=== PATIENT | female | born 1975 | race Hispanic/Latino ===

== ENCOUNTER → 2020-07-11 15:52 | Outpatient (CLI) | payer OTHER, SELFPAY ==
[2020-07-11] MEDS: COVID-19 VACC, Ad26(JANSSEN)/PF 0.5 ML IM (16:03)
== END ==
PROVIDERS: Visit Provider Internal Medicine
DX: Z23 Encounter for immunization (principal)
CPT/HCPCS: 0031A; 91303

== ENCOUNTER → 2023-06-28 17:18 | Outpatient (CLI) | payer OTHER, SELFPAY | PROVIDERS: Visit Provider Physician Assistant | DX: N94.9 Unspecified condition associated with female genital organs and menstrual cycle (principal) | CPT/HCPCS: 87210 ==

== ENCOUNTER → 2023-07-26 09:55 | Outpatient (CLI) | payer OTHER, SELFPAY ==
[2023-07-26 11:46] LABS: Prolactin 6.7 ng/mL (3.0-18.6)
[2023-07-26 11:50] LABS: TSH w/ Reflex to FT4 2.32 uIU/mL (0.47-4.68)
== END ==
PROVIDERS: Referring Provider Physician Assistant; Visit Provider Physician Assistant
DX: N64.52 Nipple discharge (principal)
CPT/HCPCS: 36415; 84146; 84443

== ENCOUNTER → 2023-08-11 10:56 | Outpatient (CLI) | payer OTHER, SELFPAY ==
[2023-08-11 12:31] LABS: Cholesterol 227 mg/dL (140-199); HDL Cholesterol 24 mg/dL (40-60)
[2023-08-11 13:11] LABS: Triglycerides 1320 mg/dL (35-150)
[2023-08-11 17:28] LABS: Hemoglobin A1C% w Est Avg Glu 11.3 % (4.0-6.0)
== END ==
PROVIDERS: PCP Family Medicine; Referring Provider Family Medicine; Visit Provider Family Medicine
DX: Z13.1 Encounter for screening for diabetes mellitus (principal); Z13.220 Encounter for screening for lipoid disorders
CPT/HCPCS: 36415; 80061; 83036

== ENCOUNTER → 2023-08-12 08:42 | Outpatient (CLI) | payer OTHER, SELFPAY ==
--- NOTE | 2023-08-12 08:42 | DI.US.S_ITS ---
LIMITED ULTRASOUND OF LEFT BREAST: 08/12/2023 CLINICAL: Patient returns today to evaluate a focal asymmetry in the left breast. Comparison is made to exams dated: 08/12/2023 mammogram - [facility], 03/22/2022 ultrasound, and 03/22/2022 mammogram - Outside facility. Color flow and real-time ultrasound of the left breast 2 o'clock, and retroareolar regions were performed. Abbasi scale images of the real-time examination were reviewed. There is a benign 0.9 cm x 0.7 cm x 0.5 cm oval simple cyst in the left breast at 1 o'clock middle depth 10 cm from the nipple. This oval simple cyst is anechoic. This correlates as palpated. Color flow imaging demonstrates that there is no vascularity present. There also is a benign 0.5 cm oval simple cyst in the left breast central to the nipple anterior depth. This oval simple cyst is anechoic. Color flow imaging demonstrates that there is no vascularity present. No dilated retroareolar ducts. No retroareolar mass. IMPRESSION: BENIGN There is no sonographic evidence of malignancy. The 0.9 cm simple cyst in the left breast at 1 o'clock middle depth is benign. The 0.5 cm simple cyst in the left breast central to the nipple anterior depth is benign. A 1 year screening mammogram is recommended. Exam findings were conveyed to the patient. Patient describes bilateral clear nipple discharge. Patient is advised to monitor for significant change. Clinical follow-up as needed. If symptoms worsen, breast MRI could be considered for further evaluation. This exam was interpreted at Station ID: [id number]. Electronically Signed By: Rowdy Escobedo M.D. [facility]08/12/2023 10:23:38 letter sent: Normal Exam Ultrasound BI-RADS: 2 Benign
--- NOTE | 2023-08-12 08:42 | DI.MG.S_ITS ---
BILATERAL DIGITAL DIAGNOSTIC MAMMOGRAM 3D/2D: 08/12/2023 CLINICAL: Palpable left breast lump Occasional pain in both breasts. Comparison is made to exams dated: 03/22/2022 mammogram and 03/22/2022 ultrasound - Outside facility. Both breasts are extremely dense, which lowers the sensitivity of mammography (category d />75% glandular tissue). No significant masses, calcifications, or other findings are seen in either breast. IMPRESSION: INCOMPLETE: NEEDS ADDITIONAL IMAGING EVALUATION No mammographic evidence of malignancy. A targeted ultrasound is recommended and will immediately follow. Based on the Tyrer Cuzick model (a risk assessment model) the patient's lifetime risk is 15.1% and her 10 year risk is 3.4%. According to the ACR, ACS, and NCCN guidelines, an annual breast MRI exam along with mammogram is recommended if the patient's lifetime risk is 20% or greater. This exam was interpreted at Station ID: [id number]. NOTE: For mammograms, a report in lay terms will be sent to the patient. Approximately 15% of breast malignancies will not be visualized mammographically. In the management of a palpable breast mass, a negative mammogram must not discourage biopsy of a clinically suspicious lesion. Electronically Signed By: Rowdy Escobedo M.D. slc/:08/12/2023 09:29:41 ACR BI-RADS Category 0: Incomplete 3340F
== END ==
PROVIDERS: PCP Family Medicine; Referring Provider Family Medicine; Visit Provider Family Medicine
DX: R92.2 Inconclusive mammogram (principal); N60.02 Solitary cyst of left breast; R92.323 Mammographic fibroglandular density, bilateral breasts
CPT/HCPCS: 76642; 77066; G0279

== ENCOUNTER → 2023-10-29 07:57 | Outpatient (CLI) | payer OTHER, SELFPAY ==
[2023-10-29 08:45] LABS: Influenza A - CEPHEID Flu A NEGATIVE (NEGATIVE); Influenza B - CEPHEID Flu B NEGATIVE (NEGATIVE); Respiratory Syncytial Virus Negative (Negative)
[2023-10-29 08:58] LABS: COVID-19 CEPHEID 4-PLEX PCR POSITIVE (Negative)
== END ==
PROVIDERS: PCP Family Medicine; Visit Provider Student in an Organized Health Care Education/Training Program
DX: R50.9 Fever, unspecified (principal); J02.9 Acute pharyngitis, unspecified
CPT/HCPCS: 0241U; 87070; 87077; 87147

== ENCOUNTER → 2024-01-18 18:22 | Outpatient (ROUT) | payer OTHER, SELFPAY | PROVIDERS: PCP Family Medicine; Visit Provider Dermatology | DX: L72.0 Epidermal cyst (principal) | CPT/HCPCS: 87070; 87075; 87077; 87147; 87186; 87205 ==

== ENCOUNTER → 2024-07-14 18:57 | Outpatient (CLI) | payer OTHER, SELFPAY ==
[2024-07-14 20:07] LABS: Influenza A - CEPHEID Flu A NEGATIVE (NEGATIVE); Influenza B - CEPHEID Flu B POSITIVE (NEGATIVE); Respiratory Syncytial Virus Negative (Negative)
[2024-07-14 20:08] LABS: COVID-19 CEPHEID 4-PLEX PCR Negative (Negative)
== END ==
PROVIDERS: PCP Family Medicine; Visit Provider Nurse Practitioner Family
DX: R05.1 Acute cough (principal); J02.9 Acute pharyngitis, unspecified
CPT/HCPCS: 0241U; 87070; 87077; 87147; 87186

== ENCOUNTER → 2024-07-21 08:40 | Outpatient (CLI) | payer OTHER, SELFPAY ==
--- NOTE | 2024-07-21 08:41 | DI.RAD.S_ITS ---
PROCEDURE: XR CHEST 2V INDICATIONS: Cough, dyspnea TECHNIQUE: 2 views of the chest were acquired. COMPARISON: None. FINDINGS AND IMPRESSION: No dense airspace disease or pleural effusions. Normal heart size. Unremarkable osseous structures. Dictated by: Moe Garcia M.D. on 07/21/2024 at 9:01 Approved by: Moe Garcia M.D. on 07/21/2024 at 9:02
== END ==
PROVIDERS: PCP Family Medicine; Referring Provider Physician Assistant Surgical; Visit Provider Physician Assistant Surgical
DX: R05.9 Cough, unspecified (principal)
CPT/HCPCS: 71046

== ENCOUNTER → 2024-09-17 15:51 | Outpatient (CLI) | payer OTHER, SELFPAY | LOC: LAB 15:51 | PROVIDERS: PCP Family Medicine; Visit Provider Family Medicine | DX: Z11.3 Encounter for screening for infections with a predominantly sexual mode of transmission (principal) | CPT/HCPCS: 87491; 87563; 87591 ==

== ENCOUNTER → 2024-10-24 17:16 | Outpatient (CLI) | payer OTHER, SELFPAY ==
[2024-10-25 12:19] LABS: Strep Grp B PCR POS for Grp B Strep
[2024-10-28 00:36] LABS: Chlamydia trachomatis Negative (Negative); Mycoplasma genitalium Negative (Negative); Neisseria gonorrhoeae Negative (Negative)
== END ==
PROVIDERS: PCP Family Medicine; Visit Provider Family Medicine
DX: Z11.3 Encounter for screening for infections with a predominantly sexual mode of transmission (principal); Z11.8 Encounter for screening for other infectious and parasitic diseases; N89.8 Other specified noninflammatory disorders of vagina; R10.2 Pelvic and perineal pain
CPT/HCPCS: 87210; 87491; 87563; 87591; 87653; 87801

== ENCOUNTER → 2024-12-01 09:01 | Outpatient (CLI) | payer OTHER, SELFPAY ==
[2024-12-01 11:56] LABS: Cholesterol 218 mg/dL (140-199); HDL Cholesterol 41 mg/dL (40-60); Triglycerides 304 mg/dL (35-150)
[2024-12-01 11:57] LABS: Hemoglobin A1C% w Est Avg Glu 12.5 % (4.0-6.0)
[2024-12-01 15:47] LABS: HIV 1 & 2 Ab/Ag 4th Gen Combo NEGATIVE (NEGATIVE); Hep C Virus Ab w/Reflex Quant NEGATIVE s/c (NEGATIVE)
== END ==
PROVIDERS: PCP Family Medicine; Referring Provider Family Medicine; Visit Provider Family Medicine
DX: E11.9 Type 2 diabetes mellitus without complications (principal); Z72.51 High risk heterosexual behavior; Z11.59 Encounter for screening for other viral diseases; E78.5 Hyperlipidemia, unspecified
CPT/HCPCS: 36415; 80061; 83036; 86803; 87389

== ENCOUNTER → 2025-03-05 15:50 | Outpatient (CLI) | payer OTHER, SELFPAY ==
--- NOTE | 2025-03-05 15:51 | DI.ECHO.S_ITS ---
[facility] : : [id number] : [place] : : [id number] : : Phone: [phone] Echocardiogram Report + + :Name: VINCENT BANKS Study Date: 03/05/2025 Height: 61 in : :[facility] ReadingLocation: Weight: 178 lb : : Gender: Female BSA: 1.8 m2 : :: 1975 Age: 49 yrs BP: 156/81 mmHg: :Reason For Study: Murmur : :Ordering Physician: PRINCE, : :ROSA Ashford Performed By: Olaf Cooper : :Referring: ROSA MORRISON : + + Interpretation Summary . The ejection fraction is estimated to be 70-75%. The left ventricle is hyperdynamic. Wall thickness is mildly increased. No definite signs of HOCM. If clinically indicated a cardiac MRI may be requested There is trace tricuspid regurgitation. The right ventricular systolic pressure is estimated to be at least 20 mmHg based on an estimated right atrial pressure of 3 mm Hg. Procedure: A two-dimensional transthoracic echocardiogram with color flow and Doppler was performed. The study quality was technically adequate. There is no prior echocardiogram noted for this patient. The patient was in normal sinus rhythm during the exam. Left Ventricle: The left ventricle is normal in size. Left ventricular wall thickness is mildly increased. The left ventricle is hyperdynamic. The ejection fraction is estimated to be 70-75%. There are no focal wall motion abnormalities. Grade I diastolic dysfunction with normal left atrial pressure. Right Ventricle: The right ventricle is normal in size and function. Atria: The left atrial size is normal. Right atrial size is normal. There is no Doppler evidence for an interatrial shunt. Mitral Valve: The mitral valve leaflets appear to open well. There is no mitral valve stenosis. There is trace mitral regurgitation. Aortic Valve: The aortic valve is trileaflet. The aortic valve opens well. There is no aortic valve stenosis. No aortic regurgitation is present. Tricuspid Valve: The tricuspid valve is not well visualized, but is grossly normal. There is trace tricuspid regurgitation. The right ventricular systolic pressure is estimated to be at least 20 mmHg based on an estimated right atrial pressure of 3 mm Hg. Pulmonic Valve: The pulmonic valve is not well seen, but is grossly normal. There is a trace or physiologic amount of pulmonic regurgitation. Great Vessels: The aortic root is normal size. The ascending aorta is normal in size. The aortic arch could not be visualized. The pulmonary artery is not well visualized, but is probably normal size. The IVC is of normal diameter and collapses greater than 50% with a sniff. This suggests a low right atrial pressure of 3 mm Hg. Pericardium/ Pleura There is no pericardial effusion. MMode/2D Measurements & Calculations LVIDd: 4.2 cm LVOT diam: 2.0 cm LVIDs: 2.3 cm Ao root diam: 2.9 cm FS: 44.7 % asc Aorta Diam: 2.8 cm IVSd: 1.2 cm LVPWd: 1.2 cm LV grace. diameter/BSA (cm/m^2): 2.3 LV sys. diameter/BSA (cm/m^2): 1.3 LA A2 area: 14.2 cm2 RA long axis: 4.5 cm LA A4 area: 11.3 cm2 RA area: 10.0 cm2 LA length (vol): 4.5 cm RA vol: 19.0 ml LA vol: 30.1 ml RA : 10.5 ml/m2 LA vol index: 16.7 ml/m2 IVC diam: 1.3 cm RVD1 (basal): 2.2 cm RVD2 (mid): 2.0 cm TAPSE: 2.3 cm Doppler Measurements & Calculations Ao V2 max: 191.6 cm/sec LVOT Max Sabino: 158.9 cm/sec Ao V2 mean: 126.1 cm/sec LV V1 max P.1 mmHg Ao max P.7 mmHg LV V1 VTI: 25.2 cm Ao mean P.7 mmHg JENISE(I,D): 3.0 cm2 Ao V2 VTI: 27.7 cm JENISE(V,D): 2.7 cm2 sev ratio: 0.91 JENISE indexed to BSA (cm^2/m^2): 1.6 MV E max sabino: 77.0 cm/sec TR max sabino: 205.4 cm/sec MV A max sabino: 107.5 cm/sec TR max P.9 mmHg MV E/A: 0.72 PA V2 max: 140.1 cm/sec Med Peak E' Sabino: 5.7 cm/sec PA V2 mean: 107.5 cm/sec E/E' med: 13.5 PA mean P.0 mmHg Lat Peak E' Sabino: 5.5 cm/sec PA pr(Accel): 32.8 mmHg E/E' lat: 14.0 E/e' average: 13.8 MV dec time: 0.15 sec SV(LVOT): 81.8 ml Reading Physician:05:26 PM
== END ==
LOC: ECHO 15:51
PROVIDERS: PCP Family Medicine; Referring Provider Family Medicine; Visit Provider Family Medicine
DX: R01.1 Cardiac murmur, unspecified (principal)
CPT/HCPCS: 93306

== ENCOUNTER 2025-03-15 19:25 | Emergency (ER) | payer OTHER, SELFPAY ==
[2025-03-15] VITALS (9 sets, daily range): BP systolic 143–187; BP diastolic 65–85; PULSE 95–113; RESP 14–20; TEMP 37.3; O2SAT 95–98; BMI 35.3
--- NOTE | 2025-03-15 19:29 | ED_ITS ---
HPI - Abdominal Pain General Chief Complaint: Abdominal Pain Stated Complaint: Sciatic & abdomen pain, ongoing 2mo getting worse Time Seen by Provider: 03/15/25 19:29 History of Present Illness HPI narrative: 49-year-old female history of pre diabetes hyperlipidemia, comes into the ED from home for evaluation of multiple complaints, she states that 2 months ago when she was started on Ozempic she started developing right-sided low back/hip pain nontraumatic in nature, she states that she was taken off this and is in the process of getting another medication approved, she states that she is also developing right lower abdominal pain, she describes all these pains as burning in nature, she denies any numbness weakness tingling to the lower extremities, denies any bowel or urinary incontinence or retention, denies any saddle paresthesias. Related Data Home Medications ?Medication ?Instructions ?Recorded ?Confirmed oseltamivir 75 mg capsule 75 mg PO BID 11/16/24 Previous Rx's ?Medication ?Instructions ?Recorded albuterol sulfate 90 mcg/actuation 2 puff inhalation Q 6H PRN 07/14/24 aerosol inhaler shortness of breath or wheez ing #6.7 grams benzonatate 200 mg capsule 200 mg PO BID PRN cough #28 caps 07/14/24 inhalational spacing device #1 ea 07/14/24 (Aerochamber MV spacer) triamcinolone acetonide 0.1 % 1 applic topical BID #80 grams 12/07/24 topical cream fenofibrate nanocrystallized 48 mg 48 mg PO DAILY #90 tabs 12/10/24 tablet nystatin 100,000 unit/gram topical 1 applic topical BI D #15 grams 01/18/25 ointment ondansetron 4 mg disintegrating 4 mg PO Q8H #30 tabs 0 01/18/25 tablet tirzepatide 2.5 mg/0.5 mL 2.5 mg (0.5 mL) SUBCUT QWEEK #2 mL 03/01/25 subcutaneous pen injector methocarbamol 750 mg tablet 750 mg PO TID #90 tabs 08/24 gabapentin 100 mg capsule 100 mg PO BEDTIME PRN back p ain 1 03/15/25 week #7 caps Allergies Allergy/AdvReac Type Severity Reaction Status Date / Time metformin AdvReac Mild Abdominal Verified 03/15/25 19:37 Pain Review of Systems Review of Systems Narrative: General: Denies fever, chills, weight loss HEENT: Denies headache, eye drainage, eye irritation, head trauma, sore throat, voice change Cardiovascular: Denies any chest pain, palpitations, tachycardia Respiratory: Denies any shortness of breath, cough, wheeze, stridor GI/: Positive lower abdominal pain, denies nausea, vomiting, diarrhea, bright red blood per rectum, melanotic stools, urinary frequency, urinary retention, dysuria, hematuria MSK: Positive right sided low back pain Skin: Denies any rashes, lesions, discoloration Neuro: Denies any headache, lightheadedness, dizziness, fainting, weakness Psych: Denies SI/HI Patient History Medical History (Updated 03/15/25 @ 23:01 by Josesito mR DO) Hot flashes Sciatica Groin rash Benign cyst of left breast Left breast mass Type 2 diabetes mellitus Hypertriglyceridemia Murmur Social History Smoking Status: Never smoker Exam Narrative Exam Narrative: General: Cooperative, well-developed, not in acute distress HEENT: Normocephalic, atraumatic, PERRLA, normal sclera, eyelids normal Neck: Active full range of motion, atraumatic Chest: Normal to inspection, negative crepitus, no overlying erythema ecchymosis Respiratory: Normal respiratory effort, not in acute respiratory distress, clear to auscultation bilaterally negative cough, wheeze, tachypnea, rhonchi, rales Cardiology: Regular rate rhythm negative gallop, murmur, rubs GI/: No tenderness to palpation, soft, non rigid, normal to inspection, exam deferred MSK: Full active range of motion in all 4 extremities, atraumatic, no tenderness to palpation of any bony prominences, patient neurologically intact able to stand bear weight ambulate unassisted but reproducible pain to the sciatic nerve upon palpation of the gluteus region, positive straight leg test Skin: No rashes or lesions noted Neuro: Alert awake oriented x3, moves all 4 extremities spontaneously, cranial nerves intact, able to answer all questions appropriately follows commands appropriately Psych: Cooperative, negative suicidal or homicidal ideations Initial Vital Signs Initial Vital Signs: Vital Signs Temperature 99.1 F 03/15/25 19:28 Pulse Rate 113 H 03/15/25 19:28 Respiratory Rate 14 03/15/25 19:28 Blood Pressure 187/85 H 03/15/25 19:28 Pulse Oximetry 97 03/15/25 19:28 Oxygen Delivery Method Room Air 03/15/25 19:28 Course Orders Ordered: ED Orders 03/15/25 19:30 CT abdomen pelvis w con Stat 03/15/25 19:45 Complete Blood Count AUTO DIFF Stat Comprehensive Metabolic Panel Stat Lactate (Lactic Acid) Stat Lipase Stat MAG [Magnesium] Stat 03/15/25 20:07 Urine Microscopic Stat 03/15/25 21:53 US abdomen limited Stat Discontinued Medications Sodium Chloride (Normal Saline 0.9%) 1,000 mls @ 1,000 mls/hr IV BOLUS ONE Stop: 03/15/25 20:28 Last Infusion: 03/15/25 20:28 Dose: 1,000 mls/hr Documented By: Infusion: 03/15/25 20:28 Dose: 1,000 mls/hr Documented By: Admin: 03/15/25 20:14 Dose: 1,000 mls/hr Documented By: PAM Ketorolac Tromethamine (Ketorolac 30 Mg/Ml Vial) 30 mg IV NOW ONE Stop: 03/15/25 20:14 Last Admin: 03/15/25 20:34 Dose: 30 mg Documented By: CESAR Morphine Sulfate (Morphine 4 Mg/Ml Inj) 4 mg IV NOW ONE Stop: 03/15/25 19:30 Last Admin: 03/15/25 20:58 Dose: Not Given Documented By: CESAR Ondansetron HCl (Ondansetron 4 Mg/2 Ml Inj) 4 mg IV NOW ONE Stop: 03/15/25 19:30 Last Admin: 03/15/25 20:59 Dose: Not Given Documented By: CESAR Vital Signs Vital signs: Vital Signs - 8 hr 03/15/25 19:28 03/15/25 20:12 03/15/25 20:30 Temperature 99.1 F Pulse Rate 113 H 103 H Respiratory Rate 14 Blood Pressure 187/85 H 148/65 H Pulse Oximetry 97 97 Oxygen Delivery Method Room Air 03/15/25 20:30 03/15/25 21:00 03/15/25 21:00 Temperature Pulse Rate 100 H 100 H Respiratory Rate Blood Pressure 145/65 H Pulse Oximetry 97 96 Oxygen Delivery Method 03/15/25 21:30 03/15/25 21:30 03/15/25 22:00 Temperature Pulse Rate 101 H 102 H Respiratory Rate 20 19 Blood Pressure 148/65 H Pulse Oximetry 95 95 Oxygen Delivery Method 03/15/25 22:00 Temperature Pulse Rate Respiratory Rate Blood Pressure 158/72 H Pulse Oximetry Oxygen Delivery Method MDM - Abdominal Pain Lab Data 03/15/25 19:45 03/15/25 19:45 Labs: Lab Results 03/15/25 03/15/25 Range/Units 19:45 20:07 WBC 8.9 (4.5-11.0) X10^3/uL RBC 5.26 H (4.0-5.2) X10^6/uL Hgb 13.1 (12.0-16.0) g/dL Hct 38.7 (36-46) % MCV 73.7 L (80-100) fL MCH 24.9 L (26-34) PG MCHC 33.9 (30-36) % RDW 15.1 H (11.6-14.8) % Plt Count 167 (150-400) X10^3/uL Neut % (Auto) 56.1 (50-75) % Lymph % (Auto) 36.5 (25-40) % [place] % (Auto) 5.2 (3-14) % Eos % (Auto) 1.2 L (2-4) % Baso % (Auto) 1.0 (0-2) % Neut # (Auto) 5000 (8921-6490) /uL Lymph # (Auto) 3200 (3200-5109) /uL [place] # (Auto) 500 (0-900) /uL Eos # (Auto) 100 (0-450) /uL Baso # (Auto) 100 (0-100) /uL Sodium 135 L (137-145) mmol/L Potassium 4.0 (3.4-5.1) mmol/L Chloride 103 (98-107) mmol/L Carbon Dioxide 21 L (22-32) mmol/L BUN 14 (7-17) mg/dL Creatinine 0.46 L (0.52-1.04) mg/dL Estimated GFR > 60 (>60) mL/min BUN/Creatinine Ratio 30.4 H (6-22) Glucose 360 H (70-99) mg/dL Lactate 1.6 (0.7-2.1) mmol/L Calcium 9.6 (8.4-10.2) mg/dL Magnesium 1.6 (1.6-2.3) mg/dL Total Bilirubin 0.5 (0.2-1.3) mg/dL AST 49 H (14-36) IU/L ALT 73 H (<35) IU/L Alkaline Phosphatase 166 H (38-126) U/L Total Protein 8.4 H (6.3-8.2) g/dL Albumin 4.7 (3.5-5.0) g/dL Globulin 3.7 (1.7-4.1) g/dL Albumin/Globulin Ratio 1.3 (1.0-2.8) Lipase 168 (23-300) U/L Urine RBC 0-1/hpf (0-5/HPF) Urine WBC 1-5/hpf (0-5/HPF) Ur Squamous Epith Cells 1-5 /hpf (0-5/HPF) Urine Bacteria Occasional (0-1) (None) Ur Culture Indicated? Cult not indicated Vol Urine Centrifuged 10ml (spun) Point of care testing: Urine Dip Bedside Urine Glucose 1000 mg/dl Bedside Urine Bilirubin - Negative Bedside Urine Ketone +/- 5 Urine Specific [place] 1.015 Bedside Urine Occult Blood - Negative Bedside Urine pH 6.0 Bedside Urine Protein - Negative Bedside Urine Urobilinogen - Negative Bedside Urine Nitrite - Negative Bedside Urine Leukocytes - Negative Esterase MDM Narrative Medical decision making narrative: 49-year-old female history of prediabetes, hyperlipidemia, comes into the ED from home for evaluation of low back pain, abdominal pain ongoing intermittent persistent for the past 2 months, states this all started when she was on Ozempic, she states that she was taken off this by her primary care doctor in the process of getting new medications she states that she is in the process of getting things approved by her insurance but due to persistent symptoms decided come into the ED for further evaluation treatment. Patient NIH of 0 no focal deficits no red flags for cauda equina, patient did receive fluids and morphine here had CT scans and lab work performed. Patient without leukocytosis, Chem panel without any electrolyte abnormality however patient does have elevated AST, ALT alk-phos, 49, 73, 166 as above, bilirubin normal at 0.5, urinalysis without any acute urinary tract infection, CT scan was performed no acute findings in the lumbar spine, however incidental finding was noted, CT scan showing mild gallbladder wall thickening which could be related to incomplete distention, no radiodense gallstones, cholecystitis may have similar appearance however patient without any tenderness to palpation of the right upper quadrant, did order ultrasound for further visualization of the gallstone. No other acute findings, patient states she has had resolution of her symptoms after Toradol, ultrasound did show cholelithiasis without signs of cholecystitis, patient will be instructed to follow up with primary care to have this followed, she will also be discharged home with symptomatic treatment for her sciatic/back pain, she does not want opiates we will trial gabapentin. She was given strict return precautions she verbalized understanding agrees to being discharged home with outpatient follow up Discharge Plan Departure Patient Disposition: Home Clinical Impression: Low back pain, Cholelithiasis Instructions: DI for Gallstones, DI for Sciatica Activity Restrictions/Additional Instructions: Please follow up with the primary care doctor and have repeat lab work to follow up with your cholelithiasis (gallbladder stone) Please continue your physical therapy and follow up with the primary care doctor for your low back pain Please read the discharge instructions sheet carefully and bring all papers to all doctor follow-up visits, as it may contain information that your doctor may want to see. Disease processes change and evolve, if your symptoms worsen or if you develop any new symptoms that are concerning to you please return for evaluation. Your evaluation today does not show any evidence of any life- threatening/serious illnesses requiring admission to the hospital or surgery. Please follow-up with your doctor for re-evaluation in approximately 1 day. Seek immediate medical attention for any worrisome symptoms. *If you do not have a primary care provider please contact the [facility] Resource line at [phone]. They will ask some questions about your medical history and help get you set up with a doctor in the community. Prescriptions: New gabapentin 100 mg capsule 100 mg PO BEDTIME PRN (Reason: back pain) 7 Days Qty: 7 0RF No Action oseltamivir 75 mg capsule 75 mg PO BID triamcinolone acetonide 0.1 % cream 1 applic topical BID Qty: 80 0RF Rx Instructions: apply to bilateral groin and labia. 1 dime size amount BID PRN ondansetron 4 mg tablet,disintegrating 4 mg PO Q8H Qty: 30 0RF nystatin 100,000 unit/gram ointment 1 applic topical BID Qty: 15 0RF albuterol sulfate 90 mcg/actuation HFA aerosol inhaler 2 puff inhalation Q6H PRN (Reason: shortness of breath or wheezing) Qty: 6.7 0RF (DME) Aerochamber MV Spacer See Rx Instructions .ROUTE .MEDSUPPLY Qty: 1 0RF Rx Instructions: As directed benzonatate 200 mg capsule 200 mg PO BID PRN (Reason: cough) Qty: 28 0RF tirzepatide 2.5 mg/0.5 mL pen injector 2.5 mg SUBCUT QWEEK Qty: 2 0RF Rx Instructions: for 4 weeks due to reaction to ozempic fenofibrate nanocrystallized 48 mg tablet 48 mg PO DAILY Qty: 90 2RF methocarbamol 750 mg tablet 750 mg PO TID Qty: 90 0RF Referrals: Krupa Robertson MD [Primary Care Provider, Family Practice] Stand Alone Forms: Patient Portal/API
--- NOTE | 2025-03-15 19:30 | DI.CT.S_ITS ---
PROCEDURE: CT ABDOMEN PELVIS W CON INDICATIONS: lower abd pain TECHNIQUE: After the administration of intravenous contrast, axial sections acquired from the lung bases to the pubic symphysis. Coronal and sagittal reformats were performed. For radiation dose reduction, the following was used: automated exposure control, adjustment of mA and/or kV according to patient size. COMPARISON: None. FINDINGS: Image quality: Diagnostic. Lower Chest: No significant findings. ABDOMEN: Liver: No solid mass. There is diffuse hypoattenuation of the liver parenchyma relative to the spleen compatible with hepatic steatosis. Mild hepatomegaly. Gallbladder: Gallbladder is decompressed. Mild wall thickening without significant Elsy cholecystic stranding. No radiodense gallstone. Biliary ducts: No biliary dilation. Pancreas: No ductal dilation. Spleen: Size is within normal limits. Adrenal Glands: No adrenal nodules. Kidneys and Ureters: No hydronephrosis. No solid mass. No complex renal cystic lesion which requires follow up. Stomach and Bowel: Normal colonic caliber, without significant wall thickening. No evidence for small bowel obstruction or associated inflammatory changes. The appendix is not definitively visualized. However, no secondary findings of acute inflammation are noted in the right lower quadrant. Peritoneum: No abnormal intraperitoneal fluid. No free air. Ventral Wall: No significant ventral hernia. Abdominal Nodes: No retroperitoneal or mesenteric adenopathy by size criteria. Vessels: Aorta and inferior vena cava are normal in size. PELVIS: Pelvic Organs: Status post hysterectomy. Bladder: No bladder wall thickening, accounting for underdistention. Pelvic Nodes: No enlarged lymph nodes. Miscellaneous: No inguinal hernias are seen. Bones: No aggressive osseous abnormality. Visualized osseous structures appear intact without acute fracture or focal destructive lesion. No acute compression fractures of the imaged spine. IMPRESSION: Mild gallbladder wall thickening which may be related to incomplete distension. No radiodense gallstone. Cholecystitis may have a similar appearance if there is focal tenderness in the right upper quadrant. Otherwise, no acute abnormalities identified in the abdomen or pelvis. Hepatic steatosis. Mild hepatomegaly. Other chronic/non-acute findings as above. Dictated by: Rudolph Cm M.D. on 03/15/2025 at 20:54 Approved by: Rudolph Cm M.D. on 03/15/2025 at 20:58
[2025-03-15 19:55] LABS: Add Manual Diff / Slide Review NO; Hematocrit 38.7 % (36-46); Hemoglobin 13.1 g/dL (12.0-16.0); Lymphocytes Absolute Auto 3200 /uL (1100-4500); Mean Corpuscular HGB Conc 33.9 % (30-36); Mean Corpuscular Hemoglobin 24.9 PG (26-34); Mean Corpuscular Volume 73.7 fL (80-100); Platelet Count 167 X10^3/uL (150-400)
[2025-03-15 20:11] LABS: Lactate (Lactic Acid) 1.6 mmol/L (0.7-2.1)
[2025-03-15 20:12] LABS: Alanine Aminotransferase 73 IU/L (<35); Albumin 4.7 g/dL (3.5-5.0); Albumin Globulin Ratio 1.3 (1.0-2.8); Alkaline Phosphatase 166 U/L (38-126); Blood Urea Nitrogen 14 mg/dL (7-17); Calcium 9.6 mg/dL (8.4-10.2); Carbon Dioxide 21 mmol/L (22-32); Chloride 103 mmol/L (98-107); Estimated Glomerular Filt Rate > 60 mL/min (>60); Globulin 3.7 g/dL (1.7-4.1); Glucose 360 mg/dL (70-99); HEMOLYSIS 38 (0-50); Lipase 168 U/L (23-300); Potassium 4.0 mmol/L (3.4-5.1); Sodium 135 mmol/L (137-145); Total Protein 8.4 g/dL (6.3-8.2)
[2025-03-15 20:13] LABS: Magnesium 1.6 mg/dL (1.6-2.3)
[2025-03-15] MEDS: SODIUM CHLORIDE 0.9% 1,000 ML 1000 ML IV (20:14)
[2025-03-15] MEDS: KETOROLAC 30 MG/ML VIAL IV (20:34)
[2025-03-15 20:38] LABS: Culture Indicated Urine Cult Not Indicated
--- NOTE | 2025-03-15 21:53 | DI.US.S_ITS ---
PROCEDURE: US ABDOMEN LIMITED INDICATIONS: POSSIBLE CHOLECYSTITIS TECHNIQUE: Real-time scanning was performed of the abdominal and retroperitoneal organs, with image documentation. COMPARISON: [facility], CT, CT ABDOMEN PELVIS W CON, 03/15/2025, 19:53. FINDINGS: Gallbladder: There is a non mobile 1.5 cm stone within the gallbladder fundus. There is mild wall thickening at 3 mm. Negative pericholecystic fluid. Positive sonographic Hernadez sign. Biliary ducts: Intrahepatic bile ducts are non-dilated. Extrahepatic bile duct caliber measures 5 mm. Normal is 6-7 mm or less in diameter, or 10 mm or less post-cholecystectomy. Miscellaneous: No free abdominal fluid. IMPRESSION: Cholelithiasis with sonographic findings of acute cholecystitis. Dictated by: Rudolph Cm M.D. on 03/15/2025 at 22:45 Approved by: Rudolph Cm M.D. on 03/15/2025 at 22:46
[2025-03-15] MEDS: GABAPENTIN 100 MG CAPSULE PO (23:35)
== END 2025-03-15 23:41 | disposition home or self-care (01) ==
PROVIDERS: Emergency Provider Student in an Organized Health Care Education/Training Program; PCP Family Medicine
DX: K80.20 Calculus of gallbladder without cholecystitis without obstruction (principal); M54.50 Low back pain, unspecified
CPT/HCPCS: 36415; 74177; 76705; 80053; 81003; 81015; 83605; 83690; 83735; 85025; 96361; 96374; 99284; J1885; J7030; Q9967

== ENCOUNTER 2025-04-30 10:21 | Day surgery (SDC) | payer OTHER, SELFPAY ==
[2025-04-18 14:56] VITALS: BMI 35.3
[2025-04-30] VITALS (9 sets, daily range): BP systolic 103–148; BP diastolic 53–81; PULSE 83–94; RESP 12–26; TEMP 36.1–36.6; O2SAT 90–98
--- NOTE | 2025-04-30 | PATH_ITS ---
[facility] Accession Number: [id number] No. of containers..01 Tissue . 01 Material submitted: . gallbladder - GALLBLADDER . 01 Diagnosis: GALLBLADDER, CHOLECYSTECTOMY: Mild chronic calculus cholecystitis. Focal adenomyomatous hyperplasia. Negative for dysplasia or malignancy. MRV 05/06/2025 1724 Local . 01 Comment: As part of ongoing manager quality improvement, this case is also reviewed by Dr. Libby Rock, who agrees with the interpretation. . 01 Electronically signed: . Waylon Lozada MD, Pathologist NPI- [id number] . 01 Gross description: . Received in formalin with two patient identifiers and galllbladder, is a 9.2 x 3.8 x 2.6 cm intact gallbladder. The stapled cystic duct margin is inked black. The serosa is yellow-purple and smooth. The mucosa is green and velvety with focal yellow stippling and a 0.2 to 0.6 cm, thick wall. There is a 0.4 x 0.4 x 0.2 cm thickened area/possible polyp within the gallbladder neck, 1.0 cm from the cystic duct margin. The lumen contains green, viscous bile, and one 2.1 cm brown, nodular calculus. Lymph nodes are not grossly identified. Can Tester sections are submitted as follows: A1: Cystic duct margin and gallbladder wall. A2: Gallbladder wall with entire possible polyp, bisected. ([id number]) /CATRACHITA 05/03/2025 0900 Local . 01 Pathologist provided ICD-10: K80.10 . 01 CPT . 460749 Specimen Comment: A courtesy copy of this report has been sent to [facility] Pathology Performed at: [address] [address], [place], [place] [id number] MD Nico Bell MD Phone: [phone]
--- NOTE | 2025-04-30 | DI.RAD.S_ITS ---
PROCEDURE: XR CHOLANGIOGRAM OPERATIVE INDICATIONS: CHOL COMPARISON: [facility], US, US ABDOMEN LIMITED, 03/15/2025, 22:26. FINDINGS: Biliary ducts: The surgeon injected contrast into the biliary ducts after cannulation of the cystic duct stump. Visualized intra- and extrahepatic bile ducts are normal in caliber, without strictures. No intraluminal filling defects to suggest retained ductal stones or sludge. No evidence for iatrogenic ductal injury. Duodenum: Contrast flows promptly through the sphincter of Oddi into the duodenum, which appears normal in caliber. IMPRESSION: Unremarkable intraoperative cholangiogram. Please see real-time operative report for further details. Dictated by: Aida Lewis M.D. on 05/01/2025 at 0:37 Approved by: Aida Lewis M.D. on 05/01/2025 at 0:38
--- NOTE | 2025-04-30 06:09 | PM.PREOP ---
Pre-operative Note Interval Note History & Physical reviewed/Exam performed by Physician: Yes Changes to H&P: No ASA Class (for procedural sedation): II
[2025-04-30] MEDS: ACETAMINOPHEN 325 MG TABLET 975 MG PO (11:23)
[2025-04-30] MEDS: LACTATED RINGERS 1,000 ML 42 ML IV ×2 (11:24→13:19)
--- NOTE | 2025-04-30 12:27 | SUR.OPER ---
Supine on padded OR bed, head on pillow, safety belt at thigh, right arm padded and tucked at side. Left arm secured on padded arm board <90 degrees abduction. Legs uncrossed. Padded footboard in place. Tape over blanket to secure lower legs. final position approved by surgeon, all pressure points padded and tucked.
[2025-04-30] MEDS: BUPivacaine 0.25% W/ EPI (PF) 30 ML VIAL 60 ML INJ (12:33)
--- NOTE | 2025-04-30 13:40 | P.OP_ITS ---
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 The patient received appropriate preoperative antibiotics and DVT prophylaxis.? Surgical time-out was performed with all team members in agreement.? The pneumoperitoneum was established under direct vision using the Coello direct trocar cutdown technique.? An 0 Vicryl [id number]-[id number] suture was placed on the umbilical fascia.? The 10 mm 30 degree lens was inserted and no trauma secondary to the trocar insertion was noted.? We performed bilateral laparoscopic TAP blocks using 25 cc of 0.25% Marcaine with epinephrine.? The additional 10 cc of local was used in the skin and subcutaneous tissues at the incision sites for a total of 60 cc of local.?To access the RUQ, we divided adhesions between the omentum and anterior abdominal wall with sharp and blunt dissection with excellent hemostasis. No bowel was near the point of division. This required 18 minutes of adhesiolysis. The patient was placed in reverse Trendelenburg, [id number] position.? The fundus of the gallbladder was grasped and retracted over the liver.? The infundibulum was retracted laterally for proper exposure of the cystic duct and artery.?There were omental adhesions to the gallbladder that were divided with hook cautery. The gallbladder was tense and distended. I tried to aspirate to aid in grasping but the bile was too thick and inspissated to aspirate with laparoscopic aspirating needle. Critical view of safety was achieved with 2 distinct structures entering the gallbladder and segment 5 of the liver posterior.? A cholangiogram was performed using a yellow ureteral catheter through the La clamp.? The cystic duct and cystic artery were skeletonized with hook cautery.? A clip was placed on the cystic duct next to the gallbladder.? A ductotomy was made with laparoscopic Metzenbaum scissors.? The cholangiogram was normal.? It demonstrated normal caliber right and left hepatic ducts, common hepatic duct and common bile duct without filling defect, mass or stricture.? The contrast flowed unobstructed into the duodenum.? The cholangiogram catheter was removed and the cystic duct was doubly clipped and divided.? The cystic artery was similarly skeletonized, doubly clipped and divided with laparoscopic Metzenbaum scissors.? The adhesions between the gallbladder and the liver were divided with hook cautery.? The gallbladder was placed into an endo-pouch and removed.? The gallbladder bed and clips were inspected and no bleeding or bile drainage was noted.? The trocars were removed and there was no bleeding noted at the trocar sites.? The 0 Vicryl [id number] suture was tied and there were no palpable fascial defects.? The skin incisions were closed using 4-0 Monocryl in a subcuticular manner.? Dermabond glue was applied as a final dressing.? The estimated blood loss was minimal.? The instrument, sponge and needle counts were all correct x2.? The patient tolerated the procedure well and was extubated in the operating room and transported to the recovery area in stable condition. Complications: none Post-operative Condition: stable Disposition: PACU Plan for aftercare: PACU then home
[2025-04-30] MEDS: ONDANSETRON 4 MG/2 ML INJ IV (14:26)
[2025-04-30] MEDS: hydrOXYzine 50 MG/ML INJ 25 MG IM (14:28)
[2025-04-30] MEDS: INSULIN REGULAR 100 UNIT/ML 3 ML VIAL SUBCUT ×2 (14:45→15:37)
[2025-04-30] MEDS: INSULIN REGULAR 100 UNIT/ML 3 ML VIAL IV (15:36)
--- NOTE | 2025-04-30 16:49 | SUR.PHASEII ---
Patient's blood sugar decreased to 241 and Marii Herring CRNA said patient could be discharged if blood sugar less than 250. Talked to patient and family about the importance of her diet and her checking her blood sugar. Family is very supporttive of patient taking better care of herself.
== END 2025-04-30 16:45 | disposition home or self-care (01) ==
PROVIDERS: PCP Family Medicine; Referring Provider Surgery; Visit Provider Surgery
PROC: 0FT44ZZ Resection of Gallbladder, Percutaneous Endoscopic Approach (ICD-10-PCS; CPT 47563; principal; 2025-04-30 12:00)
DX: K80.10 Calculus of gallbladder with chronic cholecystitis without obstruction (principal); N73.6 Female pelvic peritoneal adhesions (postinfective)
CPT/HCPCS: 47563; 74300; 82962; J0689; J1100; J1885; J2060; J2250; J2405; J2704; J3010; J3410; J7120; Q9967